=== PATIENT | female | born 1950 | race Caucasian/White ===

== ENCOUNTER → 2017-01-22 | Outpatient (CLI) | payer BC | END | disposition home or self-care (01) | LOC: C.LABMFLN 16:03 | PROVIDERS: ATTEND Physician Assistant | DX: R82.90 Unspecified abnormal findings in urine (principal) ==

== ENCOUNTER 2019-06-26 06:06 | Observation (INO) ==
--- NOTE | 2019-06-08 10:44 | PAT Medication Instructions ---
Medication Instructions Date of Service June 08, 2019 Home Medications Medication Instructions Recorded oxybutynin chloride 5 mg tablet 5 mg PO TID #90 tab 03/13/19 multivitamin 1 tab PO QAM oxybutynin chloride 5 mg tablet 5 mg PO TID losartan 50 mg PO QAM meloxicam 15 mg PO QAM metoprolol succinate 25 mg PO QAM ASK your surgeon for instructions meloxicam 15 mg PO QAM DO NOT take the morning of surgery multivitamin 1 tab PO QAM oxybutynin chloride 5 mg tablet 5 mg PO TID losartan 50 mg PO QAM Take morning of surgery With a small sip of water, OTHERWISE NOTHING TO EAT OR DRINK AFTER MIDNIGHT: metoprolol succinate 25 mg PO QAM Take evening before surgery oxybutynin chloride 5 mg tablet 5 mg PO TID Other Notes If you have any questions please call us at [phone] or [phone] or [phone] or [phone]
--- NOTE | 2019-06-09 08:44 | Anesthesiology Consultation ---
Date of Service June 09, 2019 Assessment & Plan (1) Encounter for pre-operative examination: Chart Review Chart Review: Acceptable Risk for Surgery (pending surgeon-ordered PCP clearance scheduled 2/3 (Eugenie Ivy PAC/[facility])) and Patient seen in Pre Admission Testing Teaching & Discussion Pre-Anesthesia Teaching/Discussion Notes: Instructed NPO after midnight before surgery,except medications with 15 cc of water. Medication instructions provided according to the PAT guidelines. History Surgery Operation Date: 06/26/19 13:40 Proposed Procedures p Right Total Knee Arthroplasty - Tong Casillas MD Height/Weight Height: 5 ft 4 in Weight: 98 kg Allergies Allergy/AdvReac Type Severity Reaction Status Date / Time sulfamethoxazole AdvReac Severe N/V Verified 06/07/19 08:34 [From Bactrim] trimethoprim [From Bactrim] AdvReac Severe N/V Verified 06/09/19 09:01 Medications Home Medications Medication Instructions Recorded Confirmed Last Taken multivitamin 1 tab PO QAM 01/15/19 06/07/19 Unknown oxybutynin chloride 5 mg tablet 5 mg PO TID #90 tab 03/13/19 06/07/19 Unknown losartan 50 mg PO QAM 06/07/19 06/07/19 Unknown meloxicam 15 mg PO QAM 06/07/19 06/07/19 Unknown metoprolol succinate 25 mg PO QAM 06/07/19 06/07/19 Unknown Past Medical History Medical History Arthritis History of blood clots RLE X1- previously on AC x 1 year (no issues since) Hypertension Obesity Overactive bladder Recurrent UTI no issues x 1 year Exercise / Class Metabolic Activity II 4-5 Yardwork/Stairs/Walk up hill Past Family History Family History Mother Diabetes Cancer Arthritis Breast cancer Father Diabetes Sister Breast cancer lumph nodes Past Surgical History Surgical History History of appendectomy History of cholecystectomy History of colonoscopy History of exploratory laparotomy History of incisional hernia repair History of ureterotomy Status post repair of paraesophageal diaphragmatic hernia Past Anesthesia History No Hx of Anesthesia Complications (except PONV*) and No Family Hx of Anesthesia Complications History of PONV History of PONV and Hx of Motion Sickness (remote hx) Social History Smoking Status: Former smoker tobacco type: cigarettes Do You Dip or Chew Tobacco: No Smoking End Date: LIGHT USE TEENAGER Hx Alcohol Use: Yes Alcohol type: wine alcohol intake frequency: holidays/special occasions only Hx Substance Use: No substance use type: does not use Review of Systems Patient denies chest pain, shortness of breath, dyspnea on exertion, cough, wheezing, palpitations. Physical Exam Vital Signs VITALS BP 128/83 P 68 TEMP 98.1 SP02 96%RA RESP 18 PHYSICAL Full neck and c-spine range of motion. Full TMJ range of motion. TMD 3.5 finger breaths Mallampati Score 3 Dentition: missing side Lungs: clear throughout to auscultation Cardiac: regular rate and rhythm, no murmurs noted Spine: normal Carotid arteries: negative bruit Extremities: no edema Testing Laboratory Results 06/09/19 09:15 06/09/19 09:15 PT 10.3 Seconds (9.0-12.0) 06/09/19 09:15 INR 1.0 (0.9-1.1) 06/09/19 09:15 APTT 25.0 Seconds (21.0-31.0) 06/09/19 09:15 Hemoglobin A1c 6.2 % (4.5-5.6) H 06/09/19 09:15 Urine Color Dark Yellow 06/09/19 09:15 Urine Appearance Cloudy (Clear) A 06/09/19 09:15 Urine pH 6.5 (4.5-7.5) 06/09/19 09:[address] [place] 1.024 (1.000-1.030) 06/09/19 09:15 Urine Protein Negative (Negative) 06/09/19 09:15 Urine Glucose (UA) Negative (Negative) 06/09/19 09:15 Urine Ketones Negative (Negative) 06/09/19 09:15 Urine Nitrite Positive (Negative) A 06/09/19 09:15 Ur Leukocyte Esterase 1+ (Negative) H 06/09/19 09:15 Urine WBC (Auto) >30 /hpf (0-5) H 06/09/19 09:15 Urine RBC (Auto) 0-4 /hpf (0-4) 06/09/19 09:15 U Hyaline Cast (Auto) 1-5 /lpf (0-5) 06/09/19 09:15 U Epithel Cells (Auto) 10-20 /lpf (0-5) H 06/09/19 09:15 Urine Bacteria (Auto) 4+ (Negative) H 06/09/19 09:15 Blood Type O Positive 06/09/19 09:15 Antibody Screen NEGATIVE 06/09/19 09:15 *Surgeon's office made aware of elevated WBC/abnormal UA* Electrocardiogram Date: 06/09/19 Findings: + NSR @ (64) Chest X-Ray Date: 06/09/19 Findings: + NAD
--- NOTE | 2019-06-09 10:04 | XRay Report ---
XR chest Pre-admission PA/Lat CLINICAL HISTORY: Preoperative evaluation. COMPARISON STUDY: No previous studies for comparison. FINDINGS: Lung volumes are normal. Lungs are clear. There is no pneumothorax or pleural effusion. Car diac size is normal. Mediastinal contours are normal. There is no evidence for pulmonary edema. Incid ental note is made of cholecystectomy clips. IMPRESSION: No acute cardiopulmonary findings. ACT 112: Negative or not required by law. Electronically signed by: Alejandro Reynaga M.D. 06/09/2019 10:02 AM
[2019-06-09 10:44] LABS: Basophils # (auto) 0.01 K/uL (0-0.2); Basophils % (auto) 0.1 %; Hematocrit (blood only) 41.1 % (37-47); Hemoglobin 13.9 g/dL (12.0-16.0); Immature Granulocytes # (auto) 0.09 K/uL (0.00-0.02); Immature Granulocytes % (auto) 0.7 %; Lymphocytes # (auto) 1.19 K/uL (1.2-3.4); Lymphocytes % (auto) 9.2 %; Mean Corpuscular Hemoglobin 32.2 pg (25-34); Mean Corpuscular Hgb Conc 33.8 g/dL (32-36); Mean Corpuscular Volume 95.1 fL (80-100); Mean Platelet Volume 10.7 fL (7.4-10.4); Monocytes % (auto) 5.4 %; Neutrophils # (auto) 10.96 K/uL (1.4-6.5); Neutrophils % (auto) 84.6 %; Platelet Count 304 K/uL (130-400); RDW Coefficient of Variation 13.5 % (11.5-14.5); RDW Standard Deviation 47.1 fL (36.4-46.3); Red Blood Count 4.32 M/uL (4.2-5.4); White Blood Count 12.95 K/uL (4.8-10.8)
[2019-06-09 10:51] LABS: Appearance Urine Cloudy (Clear); Bacteria Urine Automated 4+ (Negative); Bilirubin Urine Negative (Negative); Blood Urine Negative (Negative); Color Urine Dark Yellow; Glucose Urine UA Negative (Negative); Ketones Urine Negative (Negative); Leukocyte Esterase Urine 1+ (Negative); Nitrite Urine Positive (Negative); Protein Urine Negative (Negative); RBC Urine Automated 0-4 /hpf (0-4); Specific Gravity Urine 1.024 (1.000-1.030); Urobilinogen Urine Negative (Negative); WBC Urine Automated >30 /hpf (0-5); pH Urine 6.5 (4.5-7.5)
[2019-06-09 10:57] LABS: Albumin Level 3.7 gm/dl (3.4-5.0); BUN Creatinine Ratio 30.1 (10-20); Calcium 10.3 mg/dl (8.5-10.1); Creatinine Clr Calc Pharmacy 63.3 ml/min; Est GFR (African American) 71.2; Est GFR (Non-African American) 61.5; Estimated Average Glucose 131 mg/dl; Hemoglobin A1C 6.2 % (4.5-5.6); Potassium 4.3 mmol/L (3.5-5.1)
[2019-06-09 11:00] LABS: Partial Thromboplastin Ratio 0.9; Prothrombin Time 10.3 Seconds (9.0-12.0)
--- NOTE | 2019-06-09 13:04 | Electrocardiogram Report ---
Test Reason : Blood Pressure : / mmHG Vent. Rate : 064 BPM Atrial Rate : 064 BPM P-R Int : 188 ms QRS Dur : 090 ms QT Int : 380 ms P-R-T Axes : 008 027 005 degrees QTc Int : 392 ms Normal sinus rhythm Normal ECG No previous ECGs available Confirmed by Preston Bernard ([id number]) on 06/09/2019 1:04:18 PM Referred By: Tong Casillas Confirmed By:Avery Bernard
--- NOTE | 2019-06-25 19:28 | History and Physical Report ---
DATE OF ADMISSION: 06/26/2019 CHIEF COMPLAINT: Chronic right knee pain. HISTORY OF PRESENT ILLNESS: This is a 69-year-old female patient of Dr. Casillas'zaina complaining of chronic right knee pain, longstanding, now progressively getting worse. The patient has failed conservative treatment including intra-articular injections, anti-inflammatories and Tylenol. She does have instability with weightbearing activities. The patient has increased pain with weightbearing activities and her pain does interfere with her activities of daily living. The patient has been diagnosed with end-stage osteoarthritis per clinical and radiographic exams. The patient wished to proceed with a right total knee arthroplasty. PAST MEDICAL HISTORY: Hypertension, osteoarthritis, kidney stones. SOCIAL HISTORY: Nonsmoker, nondrinker. PAST SURGICAL HISTORY: Hiatal hernia, kidney stones, gallbladder, and abdominal surgery. FAMILY HISTORY: Noncontributory. REVIEW OF SYSTEMS: Chronic right knee pain and instability. Otherwise, denies any shortness of breath, chest pain, nausea, vomiting or any other joint complaints. MEDICATIONS: Losartan 50 mg daily, metoprolol 25 mg daily, oxybutynin 5 mg daily, multivitamin daily. ALLERGIES: INCLUDE SULFA AND BACTRIM. PHYSICAL EXAMINATION: GENERAL: Well-developed, well-nourished 69-year-old female in no acute distress. She is alert and oriented x3 and pleasant. HEENT: Normocephalic, atraumatic. Extraocular motions are intact. Pupils are equal and reactive to light. HEART: Regular rate and rhythm, no murmurs. LUNGS: Clear. ABDOMEN: Soft, nontender, bowel sounds present. EXTREMITIES: Right knee medial joint line tenderness, varus deformity. Range of motion 0-115. Crepitation with passive range of motion, 4/5 strength with pain. NEUROLOGIC: Neurovascularly intact in her right lower extremity. DIAGNOSES: Right knee end-stage osteoarthritis, hypertension, osteoarthritis, and kidney stones. PLAN: The patient was advised of her diagnosis. Indications, risks, benefits, postop course have all been reviewed. The patient wished to proceed with right total knee arthroplasty. Necessary consent forms, preoperative testing and clearances will be obtained.
[~2019-06-26 06:06] MED LIST: ACETAMINOPHEN 500 MG TAB PO SCH; CEFAZOLIN 2000MG 2,000 MG/15 ML SYR IV SCH; CeleBREX 200 MG CAP PO SCH; FAMOTIDINE 20 MG TAB PO SCH; GABAPENTIN 300 MG CAP PO SCH; LR 500ML BOLUS, THEN 15ML/HR IV SCH; METOCLOPRAMIDE HCL 10 MG TABLET PO SCH; ROPIVACAINE 0.5% HCL/PF 150 MG, BUPIVACAINE 0.5% MPF 30 ML, EPINEPHrine 30MG/30ML (OR U... INFIL SCH; dexAMETHasone 4 MG TAB PO SCH
[2019-06-26] MEDS ORDERED: BUPIVACAINE 0.5 % 5 MG/1 ML PF 10ML VIAL ONE (06:25)
[2019-06-26] MEDS ORDERED: ROPIVACAINE 0.5% 5 MG/ML 30 ML VIAL ONE (06:25)
--- NOTE | 2019-06-26 07:08 | History & Physical Bridge Note ---
Date of Service June 26, 2019 History & Physical Bridge Note I have examined the patient, reviewed the History & Physical and in the interval since the performance of the History & Physical I have noted the following changes of clinical significance: no changes noted
[2019-06-26] MEDS ORDERED: ORTHO JOINT ANESTHETIC ONE (07:57)
[2019-06-26] MEDS ORDERED: BACITRACIN INJ 50,000 UNIT VIAL ONE (07:57)
[2019-06-26] MEDS ORDERED: MIDAZOLAM HCL 1 MG/ML 2ML VIAL ONE ×2 (08:13)
[2019-06-26] MEDS ORDERED: fentaNYL citrate 100 MCG/2 ML VIAL ONE (08:13)
[2019-06-26] MEDS ORDERED: ePHEDrine sulfate 50 MG/ML AMP IV PRN (08:25)
[2019-06-26] MEDS ORDERED: ATROPINE SULFATE 0.1 MG/ML 10ML SYR IV PRN (08:25)
[2019-06-26] MEDS ORDERED: LIDOCAINE HCL 2% 2 ML VIAL/AMP(20MG/ML) INFIL ONE (10:02)
[2019-06-26] MEDS ORDERED: ONDANSETRON INJ 2 MG/ML 2 ML VIAL ONE (10:02)
[2019-06-26] MEDS ORDERED: PROPOFOL IV EMULSION 10 MG/ML 20 ML VIAL IV ONE (10:02)
[2019-06-26] MEDS ORDERED: ePHEDrine sulfate 50 MG/ML SYR ONE (10:03)
--- NOTE | 2019-06-26 10:22 | Post Operative Brief Note ---
Immediate Post Op Note v1 Date of Surgery June 26, 2019 Pre & Post Diagnosis Operation Date: 06/26/19 08:40 Pre-Op Diagnosis: RIGHT KNEE OSTEOARTHRITIS Post-Op Diagnosis: RIGHT KNEE OSTEOARTHRITIS I identified the patient and participated in the time-out.: Yes Procedure Operation Date: 06/26/19 08:40 Actual Procedures p Right Total Knee Arthroplasty, Cemented(Right) - Tong Casillas MD Surgeon Tong Casillas MD Pool Hall Inspector Parminder VALADEZ Estimated Blood Loss 5 Findings Consistent with Post-Op Diagnosis Specimens Bone cuts Drains Hemovac Drain Anesthesia Type MAC Spinal Regional Complications none Disposition Accompanied Patient To Recovery: No Disposition: Recovery Room Overlapping Procedure I was present for: the critical portions of procedure. Back up surgeon: was not required during procedure.
--- NOTE | 2019-06-26 11:21 | XRay Report ---
RIGHT KNEE 2 VIEWS History: Right total knee arthroplasty. Degenerative arthritis. Postop. FINDINGS: The patient is status post a right total knee arthroplasty. The hardware is intact. No frac ture or dislocation. Skin dani and surgical drains are in place. IMPRESSION: Right total knee arthroplasty. No evidence for hardware complication. ACT 112: Negative or not required by law. Electronically signed by: John Landis M.D. 06/26/2019 11:20 AM
--- NOTE | 2019-06-26 11:46 | Anesthesiology Progress Note ---
Date of Service June 26, 2019 Anesthesia Post Procedure Vital Signs Vital Signs: Temp Pulse Resp BP Pulse Ox 06/26/19 11:40 36.5 C 63 14 145/89 H 97 06/26/19 11:30 36.5 C 66 14 136/85 97 06/26/19 11:20 65 14 135/87 96 06/26/19 11:10 74 17 147/91 H 96 06/26/19 11:00 73 12 123/71 93 06/26/19 10:51 36.5 C 75 16 121/77 96 Transfer of Care Handoff Completed per policy Notes Mental Status: alert / awake / arousable and participated in evaluation Patient Amnestic to Procedure: Yes Nausea / Vomiting: adequately controlled Pain: adequately controlled Airway Patency, RR, SpO2: stable & adequate BP & HR: stable & adequate Hydration State: stable & adequate Neuraxial Anesthesia: was administered and sensory block is resolving Anesthetic Complications: no major complications apparent
[2019-06-26] MEDS ORDERED: NALOXONE HCL 0.4 MG/1 ML VIAL/CARP IV PRN (12:04)
[2019-06-26] MEDS ORDERED: ONDANSETRON INJ 2 MG/ML 2 ML VIAL IV PRN (12:04)
[2019-06-26] MEDS ORDERED: MAGNESIUM HYDROXIDE SUSP 30 ML UDC PO PRN (12:04)
[2019-06-26] MEDS ORDERED: bisacodyL 10 MG SUPP PR PRN (12:04)
[2019-06-26] MEDS ORDERED: HYDROmorphone INJ 0.5 MG/0.5 ML SYR IV PRN (12:04)
[2019-06-26] MEDS ORDERED: SODIUM CHLORIDE 0.9% 1000ML 1,000 ML IV SCH (12:04)
--- NOTE | 2019-06-26 12:26 | Operative Report ---
Post Operative Report Pre & Post Diagnosis Operation Date: 06/26/19 08:40 Pre-Op Diagnosis: RIGHT KNEE OSTEOARTHRITIS Post-Op Diagnosis: RIGHT KNEE OSTEOARTHRITIS I identified the patient and participated in the time-out.: Yes Procedure Operation Date: 06/26/19 08:40 Actual Procedures p Right Total Knee Arthroplasty, Cemented(Right) - Tong Casillas MD Surgeon Tong Casillas MD Harvest Manager Parminder VALADEZ Estimated Blood Loss 5 Findings Consistent with Post-Op Diagnosis Specimens Bone cuts Drains 2 Hemovac Anesthesia Type MAC Spinal Regional Complications none Disposition Accompanied Patient To Recovery: No Disposition: Recovery Room Indications 69-year-old female with bilateral knee osteoarthritis right most severe. Radiographs demonstrate she has a varus knee [id number] medial compartment she also has advanced patellofemoral osteoarthritis [id number] patellofemoral joint as well. Patient is failed conservative management. Description of Procedure Patient taken to the operating room and anesthetized under spinal MAC regional anesthesia. Patient was placed supine on the operating table. A pneumatic tourniquet was placed about the right upper thigh. The right lower extremity was prepped and draped in sterile fashion. Knee exam demonstrated range of motion of 15 through 125 degrees varus knee. The leg was elevated exsanguinated with an Esmarch bandage and pneumatic tourniquet was raised to 325 millimeters of mercury. Skin incised sharply in longitudinal fashion. Subcutaneous flaps elevated. Incision was made through the medial retinaculum extending up in the mid third of the quadriceps tendon and down to the medial tibial tubercle. Intra-articular findings demonstrated tricompartmental DJD severe DJD patellofemoral joint with ridging and bone loss of the patella and the lateral facet area. Patient had [id number] medial compartment subluxation the femur o n the tibia loose bodies tricompartmental osteophytes synovitis calcified synovium possibly related to steroid deposition deposit. The Nanon total knee arthroplasty system was used. To expose the knee the infrapatellar fat pad was resected. The meniscal remnants and cruciate ligaments were resected. The anterior fat pad over the femur in the area of the anterior flange of the femoral component was resected. Lateral synovial bands release. The femur was exposed. An intramedullary drill hole was made into the canal. A guide joe was placed. Distal femoral cutting guide was adjusted to resect a 5 degree valgus cut with 10 millimeters distal femur resected. The knee was extended and a subperiosteal peel lateral release was performed around the patella. Patella width was measured and width was reproduced using a freehand cut technique and a 36 x 10 symmetrical patella component. The 3 drill holes were made and the excess lateral facet was beveled off to prevent any im pingement. Attention was taken back to the femur which was exposed with retractors and the femoral sizing guide was pinned in position. The drill holes were placed in 3 of external rotation to match epicondylar axis. Femur sized for a 4 component. The 4-in-1 cutting block was placed and then the anterior posterior and chamfer cuts are made. The tibia was then subluxed. The external tibial cutting guide was just to make a perpendicular cut to the long axis of the tibia below the most deficient bone loss side. A lamina terrazzo polisher was used and the flexion extension gaps were balanced. All posterior osteophytes removed. All meniscal remnants were resected. The tibia exposed and the trial tibial component size 4 was externally rotated in line with the tibial tubercle and pinned in position. The punch for stem was used. The notch cutting device was centered appropriately and the femoral notch cut was made. The femoral trial was inserted. Trial tibial inserts were placed and size 13 posterior stabilized gave balanced ligaments through flexion and extension. Patella tracking was assessed. The patella tracked centrally. The trial components were then removed and the orthomix anesthetic cocktail was injected per protocol. The knee was then copiously irrigated with pulsatile lavage antibiotic solution. Final components were then cemented with Simplex cement. Final components were for right triathlon posterior stabilized femoral component, 4 primary tibial baseplate, 4 x 30 mm posterior stabilized X3 polyethylene tibial component, S 36 x 10 mm X3 poly-patella. While the cement cured the Betadine soak was used per protocol. After cement cured further pulsatile lavage irrigation performed and 2 Hemovac drains were brought out laterally. The quadriceps tendon and medial retinaculum were closed with figure of 8 #1 Vicryl sutures. The knee was taken through full range of motion and the repair was secure. The subcutaneous tissues were closed with 2-0 Vicryl barney tures. Skin was closed with dani. Sterile dressings were applied. Patient procedure well. Parminder VALADEZ was my physician real estate assistant who assisted in patient positioning prepping and draping,leg positioning ,soft tissue retraction and instrument management and participated in the closing and will participate in postoperative care of the patient. The patient tolerated the procedure well. I attest to the content of the Intraoperative Record and any orders documented therein. Any exceptions are noted below.
[2019-06-26] MEDS ORDERED: INFLUENZA VACCINE HIGH DOSE 65+ 0.5 ML SYR IM ONE (12:40)
[2019-06-26] MEDS ORDERED: INFLUENZA ADMINISTRATION CHARGE ONE (12:40)
[2019-06-26] MEDS: OXYBUTYNIN CHLORIDE 5 MG TAB PO SCH ×2 (13:47→21:18)
[2019-06-26] MEDS: ACETAMINOPHEN 500 MG TAB PO SCH ×2 (13:47→21:16)
[2019-06-26] MEDS: FERROUS GLUCONATE 324 MG TAB PO SCH (16:05)
[2019-06-26] MEDS: CEFAZOLIN 2000MG 2,000 MG/15 ML SYR IV SCH (16:14)
--- NOTE | 2019-06-26 17:52 | Hospitalist Consultation ---
Date of Consultation June 26, 2019 Assessment & Plan (1) Post-operative state: S/p right TKA DVT proph, pain control per primary Monitor for acute blood loss (2) Hypertension: Hold losartan until POD #2 to avoid hypotension Continue metoprolol (3) Overactive bladder: Continue oxybutynin History of Present Illness Attending Physician: Tong Casillas MD History of Present Illness Ms. Siu is post op TKA today. She is up to a chair, no complaints, tolerated surgery well. Denies sob, cough, chest pain, nausea, vomiting, issues with bowel or bladder or pain. Pmhx: overactive bladder, htn Social: , non smoker, occasional wine Family: parents , lymphoma, diabetes Allergies Allergy/AdvReac Type Severity Reaction Status Date / Time sulfamethoxazole AdvReac Severe N/V Verified 06/26/19 06:39 [From Bactrim] trimethoprim [From Bactrim] AdvReac Severe N/V Verified 06/26/19 06:39 Home Medications Home Medications Medication Instructions Recorded Confirmed Type multivitamin 1 tab PO QAM 01/15/19 06/26/19 History oxybutynin chloride 5 mg tablet 5 mg PO TID #90 tab 03/13/19 06/26/19 Rx losartan 50 mg PO QAM 06/07/19 06/26/19 History meloxicam 15 mg PO QAM 06/07/19 06/26/19 History metoprolol succinate 25 mg PO QAM 06/07/19 06/26/19 History Patient History Medical History Arthritis History of blood clots RLE X1- previously on AC x 1 year (no issues since) Hypertension Obesity Overactive bladder Recurrent UTI no issues x 1 year Surgical History History of appendectomy History of cholecystectomy History of colonoscopy History of exploratory laparotomy History of incisional hernia repair History of ureterotomy Status post repair of paraesophageal diaphragmatic hernia Family History Mother Diabetes Cancer Arthritis Breast cancer Father Diabetes Sister Breast cancer lumph nodes Social History (Updated 01/25/19 @ 08:12 by Milagros Warren RN) Preferred Language: Palestinian Communication Ability: Effective Visual Impairment: Limited Hearing Ability: Normal Software Development Advisor Required: No Beliefs That Will Affect Care: None marital status: Current Living Situation: Spouse current occupational status: retired Other Information That Helps Us Care for You: Yes ( HAS BEGINNING STAGES OF DIMENTIA, NOT REAL BAD YET) Feels Safe at Home: Yes Smoking Status: Former smoker Tobacco Type: cigarettes ; Age Started Using Tobacco: 17 ; Age Quit Using Tobacco: 21 ; packs per day: 0.25 ; Do You Dip or Chew Tobacco: No ; Smoking End Date: LIGHT USE TEENAGER ; Second Hand Exposure: Yes ; Hx Alcohol Use: Yes Alcohol type: wine Alcohol Intake Frequency: Rarely Hx Substance Use: No Childhood Exposure to Second-Hand Smoke: Yes Dental Care, Regularly: Yes Physical Activity Frequency: Daily Seatbelt Use: always Sunscreen Use: Yes Do you think of yourself as: straight/heterosexual Review of Systems Review of Systems: All systems reviewed & are unremarkable except as noted in HPI & below Physical Exam Physical Exam: General: no distress Eyes: normal inspection, PERLL Respiratory: chest non tender, clear to auscultation, normal breath sounds, no respiratory distress, no accessory muscle use Cardiac: regular rate and rhythm, no rub or gallop, no murmur, no edema, no jvd GI/: active bowel sounds, no abd pain or tenderness, soft, non distended Extremities: normal range of motion, normal strength, non tender Neuro/Psych: alert and oriented x 3, normal mood and affect Skin: normal color, dry Results & Data ([facility]) Vital Signs (Past 12 Hours) Vital Signs Temp Pulse Pulse Resp BP Pulse Ox 06/26/19 14:34 36.4 C L 66 16 122/72 95 06/26/19 13:40 71 16 130/74 95 06/26/19 12:49 68 16 146/75 H 99 06/26/19 12:21 65 14 126/75 98 06/26/19 11:50 36.4 C L 66 16 138/85 98 06/26/19 11:40 36.5 C 63 14 145/89 H 97 06/26/19 11:30 36.5 C 66 14 136/85 97 06/26/19 11:20 65 14 135/87 96 06/26/19 11:10 74 17 147/91 H 96 06/26/19 11:00 73 12 123/71 93 06/26/19 10:51 36.5 C 75 16 121/77 96 PG Care Time/CCT Total # of Minutes Spent Total Time Spent with Patient: Total time spent is greater than 50% in coordination of care (as documented) at patient's floor/unit and/or counseling patient: Coding Level of Care Code 88929 Inpt Consult Level 4 Diagnoses Post-operative state Z98.890 Hypertension I10 Overactive bladder N32.81
[2019-06-26] MEDS: SENNA 8.6 MG TAB PO SCH (21:16)
[2019-06-26] MEDS: ASPIRIN 81 MG ECTAB PO SCH (21:16)
[2019-06-26] MEDS: DOCUSATE SODIUM 100 MG CAP PO SCH (21:17)
[2019-06-27] MEDS: CEFAZOLIN 2000MG 2,000 MG/15 ML SYR IV SCH (00:24)
[2019-06-27] MEDS: ACETAMINOPHEN 500 MG TAB PO SCH ×3 (05:05→21:24)
[2019-06-27 06:20] LABS: Hematocrit (blood only) 29.3 % (37-47); Hemoglobin 9.8 g/dL (12.0-16.0); Mean Corpuscular Hemoglobin 31.8 pg (25-34); Mean Corpuscular Hgb Conc 33.4 g/dL (32-36); Mean Corpuscular Volume 95.1 fL (80-100); Platelet Count 253 K/uL (130-400); RDW Coefficient of Variation 14.1 % (11.5-14.5); RDW Standard Deviation 48.9 fL (36.4-46.3); Red Blood Count 3.08 M/uL (4.2-5.4)
[2019-06-27 06:51] LABS: Calcium 8.4 mg/dl (8.5-10.1); Creatinine Clr Calc Pharmacy 52.8 ml/min; Est GFR (Non-African American) 49.2; Potassium 4.4 mmol/L (3.5-5.1)
--- NOTE | 2019-06-27 08:19 | Anesthesiology Progress Note ---
Date of Service June 27, 2019 Anesthesia Post Procedure Vital Signs Vital Signs: Temp Pulse Pulse Resp BP Pulse Ox 06/27/19 07:23 36.5 C 81 16 130/68 95 06/27/19 03:47 36.7 C 79 16 107/65 96 06/26/19 23:11 36.7 C 71 16 110/64 93 06/26/19 19:55 36.7 C 78 17 131/76 90 06/26/19 14:34 36.4 C L 66 16 122/72 95 06/26/19 13:40 71 16 130/74 95 06/26/19 12:49 68 16 146/75 H 99 06/26/19 12:21 65 14 126/75 98 06/26/19 11:50 36.4 C L 66 16 138/85 98 06/26/19 11:40 36.5 C 63 14 145/89 H 97 06/26/19 11:30 36.5 C 66 14 136/85 97 06/26/19 11:20 65 14 135/87 96 06/26/19 11:10 74 17 147/91 H 96 06/26/19 11:00 73 12 123/71 93 06/26/19 10:51 36.5 C 75 16 121/77 96 Notes Mental Status: alert / awake / arousable and participated in evaluation Patient Amnestic to Procedure: Yes Nausea / Vomiting: adequately controlled Pain: adequately controlled Airway Patency, RR, SpO2: stable & adequate BP & HR: stable & adequate Hydration State: stable & adequate Anesthetic Complications: no major complications apparent and Pt Satisfied with anesthetic care
[2019-06-27] MEDS: METOPROLOL SUCC 25MG EXT REL TAB PO SCH (08:27)
[2019-06-27] MEDS: OXYBUTYNIN CHLORIDE 5 MG TAB PO SCH ×3 (08:27→21:23)
[2019-06-27] MEDS: DOCUSATE SODIUM 100 MG CAP PO SCH ×2 (08:28→21:23)
[2019-06-27] MEDS: ASPIRIN 81 MG ECTAB PO SCH ×2 (08:28→21:23)
[2019-06-27] MEDS: FERROUS GLUCONATE 324 MG TAB PO SCH ×2 (08:28→17:51)
[2019-06-27] MEDS: MULTIVITAMIN TAB PO SCH (08:29)
[2019-06-27] MEDS: OXYCODONE HCL IR 5 MG TAB (IMMEDIATE RELEASE) PO PRN ×3 (08:31→22:07)
--- NOTE | 2019-06-27 08:37 | Orthopedic Progress Note ---
Date of Service June 27, 2019 Assessment & Plan (1) Arthritis of right knee: POD #1, Right TKA PT/ OT DVT poph- ASA D/C planning- Home w OPPT As per medicine. Admission and Anticipated Discharge Date Admission Date: June 26, 2019 Subjective POD #1, Doing well. Denies SOB, CP, N/V. Pain controlled well. Wishes OPPT on D/C. Physical Exam Physical Exam: Right knee dressings/ drain c/d/i. Toes/ ankle mobile. No calf tenderness. A&Ox3. VSS Results & Data ([facility]) Vital Signs (Past 12 Hours) Vital Signs Temp Pulse Pulse Resp BP Pulse Ox 06/27/19 08:25 90 131/79 06/27/19 07:35 37.0 C 75 18 118/76 98 06/27/19 07:23 36.5 C 81 16 130/68 95 06/27/19 03:47 36.7 C 79 16 107/65 96 06/26/19 23:11 36.7 C 71 16 110/64 93
[2019-06-27] MEDS ORDERED: LOSARTAN POTASSIUM 50 MG TAB PO SCH (09:00)
--- NOTE | 2019-06-27 14:30 | Hospitalist Progress Note ---
Date of Service June 27, 2019 Assessment & Plan (1) Post-operative state: S/p right TKA on 06/[address] Casillas. - DVT proph, pain control per primary - Acute blood loss anemia -> Hgb went from 14 before surgery to 10 after. - Primary team can order IV iron if desired. (2) Leukocytosis: Likely reactive. No indications of focal infection. No need for cultures at this time. - Recheck CBC tomorrow (3) Hypertension: BP is 130/80 today. - Continue metoprolol & losartan (4) Overactive bladder: No symptoms today. - Continue oxybutynin Given medical stability, Hospital Medicine team will sign off. Please re-consult with any questions or concerns. Thank you for letting us assist in the care of this patient! Admission and Anticipated Discharge Date Admission Date: June 26, 2019 Subjective Doing great today. No major pain in the right knee. Has been up and walking already. Reports no fevers/chills, chest pain, shortness of breath, abdominal pain, nausea, or vomiting. Physical Exam Constitutional: WD/WN, vitals as above Eyes: EOM intact bilaterally; no conjunctival abnormality ENMT: external ear and nose normal, oropharynx normal Neck: trachea midline, no thyromegaly normal visual inspection Respiratory: normal respiratory effort, lungs clear to auscultation no respiratory distress Cardiovascular: RRR, no murmur, no edema Gastrointestinal (Abdomen): Inspection/Auscultation: abdomen normal to inspection; abdomen not distended Musculoskeletal: no cyanosis or clubbing, extremities motor strength 5/5 (Ri ght knee in bandage) Skin: no rashes, warm and dry Neurologic: moves all extremities and awake Psychiatric: Orientation: alert, oriented to person and cooperative Results & Data ([facility]) Vital Signs (Past 12 Hours) Vital Signs Temp Pulse Pulse Resp BP Pulse Ox 06/27/19 08:25 90 131/79 06/27/19 07:35 37.0 C 75 18 118/76 98 06/27/19 07:23 36.5 C 81 16 130/68 95 06/27/19 03:47 36.7 C 79 16 107/65 96 PG Care Time/CCT Total # of Minutes Spent Total Time Spent with Patient: Total time spent is greater than 50% in coordination of care (as documented) at patient's floor/unit and/or counseling patient: Coding Level of Care Code 19526 Subseq Hosp Care Lvl 3 Diagnoses Post-operative state Z98.890 Leukocytosis D72.829 Hypertension I10 Overactive bladder N32.81
[2019-06-27] MEDS: SENNA 8.6 MG TAB PO SCH (21:23)
[2019-06-28] MEDS: OXYCODONE HCL IR 5 MG TAB (IMMEDIATE RELEASE) PO PRN ×3 (03:41→12:13)
[2019-06-28] MEDS: ACETAMINOPHEN 500 MG TAB PO SCH ×2 (06:13→13:34)
[2019-06-28 06:38] LABS: Hematocrit (blood only) 27.1 % (37-47); Hemoglobin 9.1 g/dL (12.0-16.0); Mean Corpuscular Hemoglobin 31.9 pg (25-34); Mean Corpuscular Hgb Conc 33.6 g/dL (32-36); Mean Corpuscular Volume 95.1 fL (80-100); Mean Platelet Volume 9.6 fL (7.4-10.4); Platelet Count 224 K/uL (130-400); RDW Coefficient of Variation 14.4 % (11.5-14.5); RDW Standard Deviation 49.5 fL (36.4-46.3); Red Blood Count 2.85 M/uL (4.2-5.4); White Blood Count 9.24 K/uL (4.8-10.8)
--- NOTE | 2019-06-28 07:26 | Orthopedic Progress Note ---
Date of Service June 28, 2019 Assessment & Plan (1) Arthritis of right knee: POD #2, Right TKA PT/ OT DVT poph- ASA D/C planning- Home w OPPT today As per medicine- will add iron supplement D/C wound vac. Admission and Anticipated Discharge Date Admission Date: June 26, 2019 Subjective POD #2, Doing well. Denies SOB, CP, N/V. Pain controlled well. Wishes OPPT on D/C. Hgb 9.1. Physical Exam Physical Exam: Right knee wound vac is bleeding through somewhat. Toes/ ankle mobile. No calf tenderness. A&Ox3 Results & Data ([facility]) Vital Signs (Past 12 Hours) Vital Signs Temp Pulse Resp BP Pulse Ox 06/27/19 23:10 36.8 C 68 16 119/70 92
[2019-06-28] MEDS: DOCUSATE SODIUM 100 MG CAP PO SCH (08:48)
[2019-06-28] MEDS: MULTIVITAMIN TAB PO SCH (08:48)
[2019-06-28] MEDS: OXYBUTYNIN CHLORIDE 5 MG TAB PO SCH ×2 (08:48→13:34)
[2019-06-28] MEDS: ASPIRIN 81 MG ECTAB PO SCH (08:49)
[2019-06-28] MEDS: METOPROLOL SUCC 25MG EXT REL TAB PO SCH (08:51)
[2019-06-28] MEDS ORDERED: FERROUS SULFATE 325 MG TAB PO SCH (09:00)
[2019-06-28] MEDS: FERROUS GLUCONATE 324 MG TAB PO SCH (09:24)
--- NOTE | 2019-07-04 12:29 | Discharge Summary ---
DISCHARGE DIAGNOSIS: Right knee osteoarthritis. SECONDARY DIAGNOSES: Hypertension, history of renal calculi. CONSULTS: Libia DENNISON/Antolin Hernandez MD COMPLICATIONS: None. PROCEDURES: Right total knee arthroplasty performed by Dr. Casillas on 06/26/2019. BRIEF HISTORY: As dictated in the history and physical. HOSPITAL SUMMARY: The patient was admitted on the above-noted date and had the above-noted surgery performed, which she tolerated well. [facility] hospitalist service was consulted for medical management during her stay. On her first postoperative day, she was doing well without complaints. She denied shortness of breath, chest pain or nausea or vomiting. Pain was controlled and she was planning on outpatient PT upon discharge. Her dressings were intact. Toes mobile, calves were nontender and vital signs were stable. She was started on physical therapy protocol and continued on DVT prophylaxis and pain management. Hemoglobin was 9.8. On her second postoperative day, she was remaining stable, doing well, continued to have good pain control and no other complaints. Hemoglobin had gone to 9.1, but she was remaining asymptomatic. Vital signs were stable. She was afebrile. Right knee wound VAC had some drainage somewhat. Toes were mobile and no calf tenderness. She was otherwise remaining stable and was continued on PT, OT protocols. She was progressing well, remaining medically stable as well as orthopedically stable and it was felt that she could be discharged to home. For further review, please see chart. LABORATORY AND X-RAY DATA: As per chart. DISCHARGE INSTRUCTIONS: The patient was discharged to home in satisfactory condition. DIET: Regular. ACTIVITY: Weightbearing as tolerated on the right lower extremity. Follow TK instruction sheets and special care instructions as noted and follow up with Dr. Casillas in 2 weeks. The patient to call for appointment if one has not been made for you. DISCHARGE MEDICATIONS: Acetaminophen 1000 mg p.o. q.8 hours, aspirin 81 mg p.o. b.i.d., ferrous sulfate 325 mg p.o. q.a.m., oxycodone 5 mg p.o. q.4 hours p.r.n. Resume home meds as listed and stop taking Meloxicam.
== END 2019-06-28 15:06 | disposition home or self-care (01) | DRG 470 ==
LOC: ASU 06:06 → INTOOBSV 11:07 → 3E 11:07